=== PATIENT | female | born 1970 ===

== ENCOUNTER 2017-03-25 16:46 | Emergency (ER) | payer BC ==
[2017-03-25] MEDS ORDERED: NS 0.9% 1000 ML* 1,000 ML IV SCH (17:30)
[2017-03-25 17:35] LABS: Hematocrit 37 % (35-47); Hemoglobin 12.4 g/dl (12.0-16.0); Mean Corpuscular HGB Conc 33 g/dl (31-36); Mean Corpuscular Hemoglobin 30 pg (27-31); Mean Corpuscular Volume 90 fL (80-97); Mean Platelet Volume 8 um3 (7.4-10.4); Red Blood Count 4.11 10^6/ul (4.0-5.4); Red Cell Distribution Width 13 % (10.5-15); White Blood Count 7.5 10^3/ul (3.5-10.8)
[2017-03-25 17:50] LABS: ALT 12 U/L (7-52); AST 14 U/L (13-39); Alkaline Phosphatase 31 U/L (34-104); Anion Gap 6 mmol/L (2-11); BUN/Creatinine Ratio 18.3 (8-20); Blood Urea Nitrogen 22 mg/dL (6-24); C Reactive Protein < 1.00 mg/L (< 5.00); CO2 Carbon Dioxide 26 mmol/L (22-32); Chloride 105 mmol/L (101-111); Creatine Kinase 125 U/L (10-223); EGFR African American 61.7 (>60); EGFR Non-African American 47.9 (>60); Globulin 2.4 g/dL (2-4); Glucose 98 mg/dL (70-100); Lipase 25 U/L (11.0-82.0); Potassium 4.2 mmol/L (3.5-5.0); Sodium 137 mmol/L (133-145); Total Protein 6.4 g/dL (6.4-8.9)
[2017-03-25 18:49] LABS: TSH (Thyroid Stimulating Horm) 2.54 mcIU/mL (0.34-5.60)
--- NOTE | 2017-03-25 18:53 | RAD ---
Indication: Chest pain. Single frontal view of the chest performed at 1740 hours was reviewed. No prior study is available for comparison. No mediastinal shift is noted. Heart is of normal size and configuration. Lung drake appear clear. IMPRESSION: NO ACTIVE CARDIOPULMONARY DISEASE IS NOTED.
--- NOTE | 2017-03-25 19:38 | ED ---
Domi Lara Rebecca, scribed for Carlos Briggs MD on 03/25/17 at 1704 . HPI Chest Pain - HPI Summary HPI Summary: Pt is a 46 y/o F who presents to ED c/o CP. Pain began 2-3 weeks ago and has been intermittent since onset. Pain is in the left anterior region without radiation and she reports pain was in the breast previously though last night it moved into the left anterior chest region underneath the breast. Describes pain as "it feels like a nerve" and ranked moderate 4/10 though last night it was ranked 6/10. Sx aggravated by deep breaths, alleviated by nothing, unchanged by cough. Additionally c/o diaphoresis and chills last night with excessive burping. Notes mild SOB which she suspects is secondary to seasonal allergies. Denies nausea, edema, rash. No PMHx GERD. FHx CAD (mother and grandfather). SHx occasional smoker. Last mammogram was in the fall. Does not take oral contraceptives. - History of Current Complaint Chief Complaint: EDChestPainROMI Time Seen by Provider: 03/25/17 17:02 Hx Obtained From: Patient Onset/Duration: Started Weeks Ago - 2-3 weeks ago, Still Present Timing: Intermittent Initial Severity: Moderate - 6/10 Current Severity: Moderate Pain Intensity: 4 Pain Scale Used: 0-10 Numeric Chest Pain Location: Left Lateral Chest Pain Radiates: No Character: Other: - "nerve" Aggravating Factor(s): Deep Breaths Alleviating Factor(s): Nothing Associated Signs and Symptoms: Positive: Shortness of Breath - mild, secondary to seasonal allergies, Chills - last night, Diaphoresis - last night, Other: - Excessive burping last night; Denies rash. Negative: Nausea, Edema - Allergy/Home Medications Allergies/Adverse Reactions: Allergies Allergy/AdvReac Type Severity Reaction Status Date / Time Penicillins [PCN] Allergy Fever Verified 03/25/17 17:31 PMH/Surg Hx/FS Hx/Imm Hx Endocrine/Hematology History: Reports: Other Endocrine/Hematological Disorders - Hx MS Denies: Hx Diabetes Cardiovascular History: Denies: Hx Deep Vein Thrombosis GI History: Denies: Hx Gastroesophageal Reflux Disease EENT History: Reports: Hx Seasonal Allergies - Cancer History Hx Chemotherapy: No Hx Radiation Therapy: No Infectious Disease History: No Infectious Disease History: Denies: Traveled Outside the [place] in Last 30 Days - Family History Known Family History: Positive: Cardiac Disease - Social History Lives: With Family Substance Use Type: Reports: None Smoking Status (MU): Current Some Day Smoker Review of Systems Positive: Chills - last night, Skin Diaphoresis - last night Positive: Chest Pain Positive: Shortness Of Breath - mild, secondary to seasonal allergies Positive: Other - Excessive burping. Negative: Nausea Negative: Edema Negative: Rash All Other Systems Reviewed And Are Negative: Yes Physical Exam - Summary Physical Exam Summary: General: well-appearing, no pain distress Skin: warm, skin color reflects adequate perfusion, dry Head: normal Eyes: EOMI, RADHA ENT: normal Neck: supple, nontender Respiratory: CTA, breath sounds present Cardiovascular: RRR Abdomen: soft, nontender Bowel: present Musculoskeletal: normal, strength/ROM intact Neuro: normal, sensory/motor intact, A&O x3 Psych: affect/mood appropriate L breast exam: No irregularities, no erythema, minimal tenderness to palpation in the LUQ, no masses Triage Information Reviewed: Yes Vital Signs On Initial Exam: Initial Vitals Temp Pulse Resp BP Pulse Ox 98.7 F 108 20 159/94 98 03/25/17 16:48 03/25/17 16:48 03/25/17 16:48 03/25/17 16:48 03/25/17 16:48 Vital Signs Reviewed: Yes Diagnostics - Vital Signs Vital Signs Temp Pulse Resp BP Pulse Ox 03/25/17 16:48 98.7 F 108 20 159/94 98 - Laboratory Lab Results: Lab Results 03/25/17 03/25/17 03/25/17 Range/Units 17:25 17:25 17:25 WBC 7.5 (3.5-10.8) 10^3/ul RBC 4.11 (4.0-5.4) 10^6/ul Hgb 12.4 (12.0-16.0) g/dl Hct 37 (35-47) % MCV 90 (80-97) fL MCH 30 (27-31) pg MCHC 33 (31-36) g/dl RDW 13 (10.5-15) % Plt Count 255 (150-450) 10^3/ul MPV 8 (7.4-10.4) um3 Neut % (Auto) 53.4 (38-83) % Lymph % (Auto) 35.5 (25-47) % [place] % (Auto) 8.6 (1-9) % Eos % (Auto) 1.7 (0-6) % Baso % (Auto) 0.8 (0-2) % Absolute Neuts (auto) 4.0 (1.5-7.7) 10^3/ul Absolute Lymphs (auto) 2.7 (1.0-4.8) 10^3/ul Absolute Monos (auto) 0.6 (0-0.8) 10^3/ul Absolute Eos (auto) 0.1 (0-0.6) 10^3/ul Absolute Basos (auto) 0.1 (0-0.2) 10^3/ul Absolute Nucleated RBC 0 10^3/ul Nucleated RBC % 0 INR (Anticoag Therapy) 0.89 (0.89-1.11) APTT 26.5 (26.0-36.3) seconds D-Dimer, Quantitative < 200 (Less Than 230) ng/mL Sodium (133-145) mmol/L Potassium (3.5-5.0) mmol/L Chloride (101-111) mmol/L Carbon Dioxide (22-32) mmol/L Anion Gap (2-11) mmol/L BUN (6-24) mg/dL Creatinine (0.51-0.95) mg/dL Est GFR ( Amer) (>60) Est GFR (Non-Af Amer) (>60) BUN/Creatinine Ratio (8-20) Glucose (70-100) mg/dL Lactic Acid (0.5-2.0) mmol/L Calcium (8.6-10.3) mg/dL Magnesium (1.9-2.7) mg/dL Total Bilirubin (0.2-1.0) mg/dL AST (13-39) U/L ALT (7-52) U/L Alkaline Phosphatase (34-104) U/L Total Creatine Kinase (10-223) U/L CK-MB (CK-2) (0.6-6.3) ng/mL Troponin I (<0.04) ng/mL C-Reactive Protein (< 5.00) mg/L B-Natriuretic Peptide 20 ( - 100) pg/mL Total Protein (6.4-8.9) g/dL Albumin (3.2-5.2) g/dL Globulin (2-4) g/dL Albumin/Globulin Ratio (1-3) Lipase (11.0-82.0) U/L TSH (0.34-5.60) mcIU/mL 03/25/17 03/25/17 Range/Units 17:25 17:25 WBC (3.5-10.8) 10^3/ul RBC (4.0-5.4) 10^6/ul Hgb (12.0-16.0) g/dl Hct (35-47) % MCV (80-97) fL MCH (27-31) pg MCHC (31-36) g/dl RDW (10.5-15) % Plt Count (150-450) 10^3/ul MPV (7.4-10.4) um3 Neut % (Auto) (38-83) % Lymph % (Auto) (25-47) % [place] % (Auto) (1-9) % Eos % (Auto) (0-6) % Baso % (Auto) (0-2) % Absolute Neuts (auto) (1.5-7.7) 10^3/ul Absolute Lymphs (auto) (1.0-4.8) 10^3/ul Absolute Monos (auto) (0-0.8) 10^3/ul Absolute Eos (auto) (0-0.6) 10^3/ul Absolute Basos (auto) (0-0.2) 10^3/ul Absolute Nucleated RBC 10^3/ul Nucleated RBC % INR (Anticoag Therapy) (0.89-1.11) APTT (26.0-36.3) seconds D-Dimer, Quantitative (Less Than 230) ng/mL Sodium 137 (133-145) mmol/L Potassium 4.2 (3.5-5.0) mmol/L Chloride 105 (101-111) mmol/L Carbon Dioxide 26 (22-32) mmol/L Anion Gap 6 (2-11) mmol/L BUN 22 (6-24) mg/dL Creatinine 1.20 H (0.51-0.95) mg/dL Est GFR ( Amer) 61.7 (>60) Est GFR (Non-Af Amer) 47.9 (>60) BUN/Creatinine Ratio 18.3 (8-20) Glucose 98 (70-100) mg/dL Lactic Acid 0.7 (0.5-2.0) mmol/L Calcium 9.0 (8.6-10.3) mg/dL Magnesium 2.0 (1.9-2.7) mg/dL Total Bilirubin 0.30 (0.2-1.0) mg/dL AST 14 (13-39) U/L ALT 12 (7-52) U/L Alkaline Phosphatase 31 L (34-104) U/L Total Creatine Kinase 125 (10-223) U/L CK-MB (CK-2) 1.7 (0.6-6.3) ng/mL Troponin I 0.00 (<0.04) ng/mL C-Reactive Protein < 1.00 (< 5.00) mg/L B-Natriuretic Peptide ( - 100) pg/mL Total Protein 6.4 (6.4-8.9) g/dL Albumin 4.0 (3.2-5.2) g/dL Globulin 2.4 (2-4) g/dL Albumin/Globulin Ratio 1.7 (1-3) Lipase 25 (11.0-82.0) U/L TSH 2.54 (0.34-5.60) mcIU/mL Result Diagrams: 03/25/17 17:25 03/25/17 17:25 Lab Statement: Any lab studies that have been ordered have been reviewed, and results considered in the medical decision making process. - Radiology CXR Xray Interpretation: No Acute Changes - NO CATIVE CARDIOPULMONARY DISEASE IS NOTED. Radiology Interpretation Completed By: Radiologist - EKG 1650 Cardiac Rate: NL - 95 BPM EKG Rhythm: Sinus Rhythm Ectopy: PVCs EKG Interpretation: Flipped Ts in lead 3 and aVF Re-Evaluation - Re-Evaluation First Eval Re-Evaluation Time: 19:23 Comment: Discussed CXR, EKG and lab results with the pt. Plan of care involving discharge is discussed with pt, and she is agreeable. Chest Pain Course/Dx - Course Course Of Treatment: NO CRITICAL CARE TIME. DISCUSSED RESULTS WITH PATIENT/ . IMPROVED IN THE ED. DISCHARGE HOME STABLE. - Diagnoses Provider Diagnoses: Chest pain Discharge - Discharge Plan Condition: Stable Disposition: HOME Patient Education Materials: Chest Pain (ED) Referrals: Filipe Gallegos MD [Primary Care Provider] - Additional Instructions: FOLLOW UP WITH YOUR DOCTOR. RETURN TO THE EMERGENCY DEPARTMENT FOR ANY WORSENING OF YOUR CONDITION; PAIN, SHORTNESS OF BREATH, YOU FEEL ILL OR QUESTIONS OR CONCERNS. The documentation as recorded by the Domi hooper Rebecca accurately reflects the service I personally performed and the decisions made by me, Carlos Briggs MD.
[2017-03-25 19:52] VITALS: BP 121/74
== END 2017-03-25 19:53 | disposition home or self-care (01) ==
LOC: ED 16:46
DX: R07.9 Chest pain, unspecified (principal); R06.02 Shortness of breath; Z72.0 Tobacco use
CPT/HCPCS: 36415; 71010; 80053; 82550; 82553; 83605; 83690; 83735; 83880; 84443; 84484; 85025; 85379; 85610; 85730; 86140; 86618; 93005; 99284

== ENCOUNTER 2019-06-27 09:26 | Emergency (ER) | payer BC ==
[2019-06-27] MEDS ORDERED: NS 0.9% 1000 ML** 1,000 ML IV ONE (09:33)
[2019-06-27] MEDS ORDERED: Ondansetron INJ* 2 MG/ML VIAL IV ONE (09:35)
--- NOTE | 2019-06-27 09:35 | ED ---
Adult Trauma - HPI Summary HPI Summary: The patient is a 49 y/o M arriving by ambulance to [facility] with a chief complaint of falling out of a second story window about 15 feet high this morning between [id number]. She reports that she had been drinking last night and doesnt completely remember the event, and she is unsure of loss of consciousness. She is now c/o low back pain, right hip pain, rectal bleeding, and ecchymosis along the buttocks. She denies any head injury or abdominal pain. Currently, her pain is rated 6/10 in severity. She told EMS she had been walking after the fall, but movement severely aggravates the pain. LNMP: menopause 1.5 years ago. PMHx: multiple sclerosis, HLD. Current some day smoker, rare EtOH, no substance use. Medications reviewed. Allergies noted. - History of Current Complaint Stated Complaint: FALL PER EMS Hx Obtained From: Patient Mechanism of Injury: Fall - out of second story window, 15 feet high Loss of Consciousness: unsure Onset/Duration: Started Hours Ago - between 4217-1419 this morning, Traumatic, Still Present Onset of Pain: Immediate Onset Severity: Severe Current Severity: Severe Pain Intensity: 6 Pain Scale Used: 0-10 Numeric Location: Back - low, Other - right hip Character: Sharp Aggravating Factor(s): Movement Alleviating Factor(s): Nothing Associated Signs & Symptoms: Positive: Memory Loss, Other: - Positive: rectal bleeding, ecchymosis of buttocks. Negative: head injury. Negative: Abdominal Pain - Allergy/Home Medications Allergies/Adverse Reactions: Allergies Allergy/AdvReac Type Severity Reaction Status Date / Time Penicillins Allergy Rash Verified 06/27/19 09:38 PMH/Surg Hx/FS Hx/Imm Hx Endocrine/Hematology History: Reports: Other Endocrine/Hematological Disorders - Hx MS Denies: Hx Diabetes Cardiovascular History: Reports: Hx Hypercholesterolemia Denies: Hx Deep Vein Thrombosis, Hx Hypertension GI History: Denies: Hx Gastroesophageal Reflux Disease - Cancer History Hx Chemotherapy: No Hx Radiation Therapy: No - Surgical History Surgical History: None Surgery Procedure, Year, and Place: none - Family History Known Family History: Positive: Cardiac Disease - Social History Alcohol Use: Rare Hx Substance Use: No Substance Use Type: Reports: None Hx Tobacco Use: Yes Smoking Status (MU): Current Some Day Smoker Review of Systems Positive: Other - rectal bleeding. Negative: Abdominal Pain Positive: Other - low back pain, right hip pain Positive: Bruising - along buttocks Neurological: Other - Positive: amnesia. Negative: head injury with fall. All Other Systems Reviewed And Are Negative: Yes Physical Exam - Summary Physical Exam Summary: VITAL SIGNS: Reviewed. GENERAL: Patient is a well-developed and nourished female who is lying comfortable in the stretcher. Patient is not in any acute respiratory distress. HEAD AND FACE: No signs of trauma. No ecchymosis, hematomas or skull depressions. No sinus tenderness. EYES: PERRLA, EOMI x 2, No injected conjunctiva, no nystagmus. No photophobia. EARS: Hearing grossly intact. Ear canals and tympanic membranes are within normal limits. MOUTH: Oropharynx within normal limits. NECK: Supple, trachea is midline, no adenopathy, no JVD, no carotid bruit, no c- spine tenderness, neck with full ROM. No meningeal signs, no Kernig's or brudzinskis signs. CHEST: Symmetric, no tenderness at palpation. LUNGS: Clear to auscultation bilaterally. No wheezing or crackles. CVS: Regular rate and rhythm, S1 and S2 present, no murmurs or gallops appreciated. ABDOMEN: Soft, non-tender. No signs of distention. No rebound, no guarding, and no masses palpated. Bowel sounds are normal. EXTREMITIES: A lot of tenderness in the lumbar spine. FROM in all major joints, no edema, no cyanosis or clubbing. NEURO: Alert and oriented x 3. No acute neurological deficits. Speech is normal and follows commands. SKIN: A lot of bruising in the left gluteus. Dry and warm. GCS: 15. RECTAL: Gross blood in the rectum. : No blood at the urethral meatus. Triage Information Reviewed: Yes Vital Signs Reviewed: Yes - Geoff Coma Scale Best Eye Response: 4 - Spontaneous Best Motor Response: 6 - Obeys Commands Best Verbal Response: 5 - Oriented Coma Scale Total: 15 Procedures - Sedation Patient Received Moderate/Deep Sedation with Procedure: No - Ultrasound FAST US Ultrasound: normal Diagnostics - Laboratory Result Diagrams: 06/27/19 09:33 06/27/19 09:33 Lab Statement: Any lab studies that have been ordered have been reviewed, and results considered in the medical decision making process. - Radiology Chest X-Ray Radiology Interpretation Completed By: Radiologist Summary of Radiographic Findings: Impression: No evidence for active cardiopulmonary disease. ED physician has reviewed this report. Pelvis X-Ray Radiology Interpretation Completed By: Radiologist Summary of Radiographic Findings: Impression: No evidence for fracture, if the patient's symptoms persist, recommend follow-up imaging. ED physician has reviewed this report. Adult Trauma Course/Dx - Course Assessment/Plan: Patient is a 49 y/o F who had been drinking last night with chief complaint of falling 15 feet out of a second story window this morning sometime between 0099-1285 which she does not remember, and she is now sustaining rectal bleeding, low back pain, right hip pain, and ecchymosis on the buttocks. Initially we obtained a 2 IV accesses. IV fluids were given. The patient was given morphine for the pain and Zofran for nausea. Patient was placed in a bander. FAST exam was done and no blood was seen. X-ray of the hip is negative for acute fracture dislocation. Chest x-ray shows no pneumothorax. Blood work Without any significant abnormality except for WBCs 18.7, hemoglobin 11.9, hematocrit 35, platelet 369, glucose 123, CPK 244. Serum alcohol level is 82. At this time awaiting for communication with the transfer center. Meantime CTs ([place] Scan) and are pending results. I discussed my physical exam and findings with Dr. Robby NIELSEN attending at [facility] and he accepted the patient for transfer. The patient will be transferred via [facility]. At this time the patient is hemodynamically stable alert and oriented 3. No acute neurological deficit before transfer. - Diagnoses Provider Diagnoses: Trauma - Physician Notifications Discussed Care Of Patient With: Dr. Bustamante - [facility] Time Discussed With Above Provider: 09:55 Instructed by Provider To: Transfer - Patient accepted for transfer to [facility] ED. Admit/Transition Orders Completed By ED Provider: Yes Reason For Transfer: Patient not appropriate for [facility]. Discharge ED - Sign-Out/Discharge Documenting (check all that apply): Patient Departure - Patient accepted for transfer to ED [facility] - Discharge Plan Condition: Stable Disposition: TRANS HIGHER LVL OF CARE FAC Referrals: Filipe Gallegos MD [Primary Care Provider] - - Billing Disposition and Condition Condition: STABLE Disposition: Trans Higher Lvl of Care Fac - Attestation Statements Document Initiated by Trinyibmarina: Yes Documenting Scribe: Kayla Lawrence Provider For Whom Joleen is Documenting (Include Credential): Dr. Luc Trent MD Scribe Attestation: I, bessy Adened for Dr. Luc Trent MD on 06/27/19 at 1029. Scribe Documentation Reviewed: Yes Provider Attestation: The documentation as recorded by the Kayla hooper accurately reflects the service I personally performed and the decisions made by me, Dr. Luc Trent MD Status of Scribe Document: Viewed
[2019-06-27] MEDS ORDERED: Morphine 4 MG/ML VIAL (1 ml) 4 MG/ML VIAL ONE (09:36)
[2019-06-27] MEDS ORDERED: Ondansetron INJ* 2 MG/ML VIAL ONE (09:36)
[2019-06-27] MEDS: Morphine 4 MG/ML VIAL (1 ml) 4 MG/ML VIAL IV ONE ×2 (09:39→09:50)
[2019-06-27 09:46] LABS: ABS Basophils 0.1 10^3/ul (0-0.2); ABS Lymphocytes 1.1 10^3/ul (1.0-4.8); ABS Monocytes 0.7 10^3/ul (0-0.8); ABS Neutrophils 16.8 10^3/ul (1.5-7.7); Eosinophil % 0.1 %; Hematocrit 35 % (35-47); Hemoglobin 11.9 g/dL (12.0-16.0); Mean Corpuscular HGB Conc 34 g/dL (31-36); Mean Corpuscular Hemoglobin 30 pg (27-31); Mean Corpuscular Volume 87 fL (80-97); Mean Platelet Volume 7.8 fL (7.4-10.4); Platelet Count 369 10^3/uL (150-450); Red Blood Count 4.01 10^6 /uL (3.70-4.87); Red Cell Distribution Width 13 % (10-15); White Blood Count 18.7 10^3/uL (3.5-10.8)
[2019-06-27 09:51] LABS: INR 0.87 (0.82-1.09)
[2019-06-27 10:03] LABS: Albumin 4.4 g/dL (3.2-5.2); Albumin/Globulin Ratio 2.1 (1-3); BUN/Creatinine Ratio 19.7 (8-20); Calcium 8.9 mg/dL (8.6-10.3); EGFR African American 97.1 (>60); EGFR Non-African American 80.2 (>60); Globulin 2.1 g/dL (2-4); Potassium 3.5 mmol/L (3.5-5.0); Total Bilirubin 0.2 mg/dL (0.2-1.0); Total Protein 6.5 g/dL (6.4-8.9)
[2019-06-27 10:04] LABS: Troponin I 0.01 ng/mL (<0.04)
[2019-06-27] MEDS ORDERED: Iodixanol* (CONTRAST) 320 MG/ML 100 ML SDV IV ONE (10:13)
[2019-06-27 10:34] VITALS: BP 129/74
[2019-06-27] MEDS ORDERED: Morphine 4 MG/ML VIAL (1 ml) 4 MG/ML VIAL IV ONE (10:43)
== END 2019-06-27 10:45 | disposition short-term general hospital (02) ==
LOC: ED 09:26
DX: S32.021A Stable burst fracture of second lumbar vertebra, initial encounter for closed fracture (principal); S32.019A Unspecified fracture of first lumbar vertebra, initial encounter for closed fracture; S30.0XXA Contusion of lower back and pelvis, initial encounter; W13.4XXA Fall from, out of or through window, initial encounter; Y92.9 Unspecified place or not applicable; M47.812 Spondylosis without myelopathy or radiculopathy, cervical region; M54.5 Low back pain; M25.551 Pain in right hip; K62.5 Hemorrhage of anus and rectum; R41.3 Other amnesia; G35 Multiple sclerosis; Z88.0 Allergy status to penicillin; Z72.0 Tobacco use
CPT/HCPCS: 36415; 70450; 71045; 71260; 72125; 72128; 72131; 72170; 74177; 80053; 80320; 82550; 83605; 84484; 85025; 85610; 96374; 96375; 96376; 99284; G0480; J2270; J2405; Q9967